=== PATIENT | female | born 1985 | race Caucasian/White ===

== ENCOUNTER 2016-12-30 11:01 | Inpatient (IN) ==
[2016-12-30] MEDS ORDERED: ZOFRAN IV ONE (11:51)
[2016-12-30] MEDS ORDERED: MORPHINE IV ONE (11:51)
[2016-12-30] MEDS ORDERED: NS 2,000 ML IV ONE (11:51)
--- NOTE | 2016-12-30 12:00 | PROVIDER DOCUMENTATION ---
HPI-General Adult - General Chief Complaint: Nausea/Vomiting Stated Complaint: VOMITING,DIABETIC Time Seen by Provider: 12/30/16 11:34 Source: patient Allergies/Adverse Reactions: Patient Allergies Allergy/AdvReac Type Severity Reaction Status Date / Time acetaminophen [From Tylenol] AdvReac NAUSEA/VOMI Verified 11/18/16 16:24 TING promethazine HCl * AdvReac VOMITING Verified 12/30/16 11:48 [From Phenergan] Home Medications: Home Medication List Medication Instructions Recorded Confirmed Last Taken Type Insulin Novolog 70/30 [Novolog Mix 22 unit SQ TID CC 08/13/14 12/30/16 12/30/16 History 70/30] Insulin Glargine,Hum.rec.anlog 24 unit SQ QHS 10/17/16 12/30/16 12/30/16 History [Lantus Solostar] Levothyroxine [Synthroid] 112 microgm PO DAILY 10/17/16 12/30/16 12/28/16 History Hydrocodone/APAP 10 mg/325 mg 1 each PO Q6H PRN PRN 12/30/16 12/30/16 12/28/16 History [[place]-10] Pregabalin [Lyrica] 300 mg PO DAILY 12/30/16 12/30/16 12/28/16 History - History of Present Illness -Gen Adult Nature of Presenting Problems: patient is a 31 y/o F that presents to the ER with 2 days of n/v and back pain. patient reports her blood sugar this am was almost at 500mg/dl. patient took 40 units of insulin and at triage blood sugar was 290mg/dl. patient reports having similar symptoms to her previous DKA. Location of Pain/Injury: reports: back Pain Radiation: reports: no radiation Quality of Pain: reports: aching, cramping Severity: reports: moderate, severe Onset/Duration: reports: gradual, 2 days ago Timing: reports: still present, constant, getting worse Context/Activities at Onset: reports: none Modifying Factors: improves with: nothing Associated Symptoms: reports: back/neck pain, malaise, nausea, vomiting. denies : chest pain, constipation, cough, diaphoresis, diarrhea, fever/chills, genitourinary problems Similar Symptoms Previously?: Yes Recently seen or treated by another doctor?: No - Diabetes Related Context Context: reports: high blood sugar, prior DKA hospitalization Review of Systems - Adult - REVIEW OF SYSTEMS - ADULT Constitutional: denies: chills, fever, fatique Eyes: reports: no symptoms reported Ears, Nose, Mouth & Throat: denies: ear discharge, ear pain, sinus problem, throat pain, throat swelling Cardiovascular: denies: chest pain, palpitations, syncope Respiratory: denies: cough, shortness of breath, wheezing Gastrointestinal: reports: nausea, rectal bleeding. denies: abdominal pain, diarrhea Genitourinary: reports: no symptoms reported Musculoskeletal: reports: back pain, muscle weakness. denies: joint pain, neck pain Integumentary: reports: no symptoms reported Neurological: reports: no symptoms reported Psychiatric: reports: no symptoms reported Endocrine: reports: no symptoms reported Hematologic/Lymphatic: reports: no symptoms reported Allergic/Immunologic: reports: no symptoms reported All Other Systems: Reviewed and Negative Past History - Adult - PAST MEDICAL HISTORY-ADULT Review of Records: reports: Old Records Reviewed, Nursing Assessment Review, Medications Reviewed Gastrointestinal: reports: other (Ventral Hernia, strected abdominal muscle due to large babies) Musculoskeletal: reports: chronic pain (back and neck) Endocrine/Immune: reports: Diabetes, thyroid disorder (hypo) Diabetes Type: Type 1 Diabetes controlled by:: Insulin Dependent - PRIOR SURGERIES/PROCEDURES Surgical/Procedure History: reports: BTL, - IMMUNIZATION STATUS Childhood Immunizations: See Nurse Assessment Flu Vaccine: See Nurse Assessment - FAMILY HISTORY Family History: reviewed, not pertinent - SOCIAL HISTORY Smoking: cigarettes, less than 1 pack/day Living Situation: family Physical Exam-General - PHYSICAL EXAM-ADULT Initial Vital Signs Reviewed: Yes - CONSTITUTIONAL General Appearance: alert, mild distress, moderate distress, anxious, other ( ill appearing) - EYES Eyes: PERRL/EOMI, pink conjunctivae - HEAD, EARS, NOSE, MOUTH & THROAT HENMT: normocephalic/atraumatic, TMs normal, other (dry oral mucosa) - NECK Neck: non-tender, full range of motion, normal inspection. negative: lymphadenopathy - RESPIRATORY Respiratory: lungs clear, normal breath sounds, no respiratory distress, no accessory muscle use - CARDIOVASCULAR Cardiovascular: no gallop, no murmur, tachycardia - GASTROINTESTINAL (ABDOMEN) Abdominal Exam: normal bowel sounds, non tender, soft, no organomegaly, no pulsatile mass - MUSCULOSKELETAL Back Exam: no CVA tenderness, no vertebral tenderness Extremity: normal range of motion, non-tender, normal inspection, no pedal edema , normal capillary refill, pelvis stable - SKIN Integumentary: normal color, warm/dry - NEUROLOGIC Neurologic: grossly normal, no motor/sensory deficits - PSYCHIATRIC Psych/Mental Status: oriented x 3, anxious Progress - PLAN OF CARE/RESULTS Progress/Plan/Lab Results: plan of care-labs, meds, cxr 1221-Abnormal Abg's called to , new orders placed Vital Signs Pulse Resp BP Pulse Ox 12/30/16 12:01 104 H 19 116/84 96 12/30/16 11:07 135 H 24 134/85 100 acetaminophen [From Tylenol] Adverse Reaction (Verified 11/18/16 16:24) NAUSEA/VOMITING promethazine HCl * [From Phenergan] Adverse Reaction (Verified 12/30/16 11:48) VOMITING Insulin Novolog 70/30 [Novolog Mix 70/30] 22 unit SQ TID CC 08/13/14 Insulin Glargine,Hum.rec.anlog [Lantus Solostar] 24 unit SQ QHS 10/17/16 Levothyroxine [Synthroid] 112 microgm PO DAILY 10/17/16 Hydrocodone/APAP 10 mg/325 mg [[place]-10] 1 each PO Q6H PRN PRN 12/30/16 Pregabalin [Lyrica] 300 mg PO DAILY 12/30/16 Laboratory 12/30/16 12/30/16 12/30/16 12:07 12:00 12:00 WBC 6.50 RBC 4.83 Hgb 15.3 Hct 47.0 MCV 97.3 MCH 31.7 H MCHC 32.6 L RDW Std Deviation 12.6 Plt Count 279 MPV 11.1 H Immature Gran % (Auto) 0.3 Neut % (Auto) 66.5 Lymph % (Auto) 22.9 Wilson % (Auto) 9.4 H Eos % (Auto) 0.6 Baso % (Auto) 0.3 Immature Gran # (Auto) 0.02 Neut # (Auto) 4.32 Lymph # (Auto) 1.49 Wilson # (Auto) 0.61 H Eos # (Auto) 0.04 Baso # (Auto) 0.02 Specimen Type ARTERIAL Sample Site R BRACHIAL pH 7.26 L pCO2 20 L pO2 112 H HCO3 12.7 L Base Excess -15.6 L Oxyhemoglobin 96.1 ABG O2 Sat (Calculated) 21.2 ABG O2 Saturation 99.4 ABG Carboxyhemoglobin 1.90 ABG Methemoglobin 1.4 [place] Test NO A-a O2 Difference 13.0 Total Hemoglobin 15.6 Lactate 6.70 H* Blood Gas Modality ROOM AIR FiO2 % 21.0 Sodium 137 Potassium 4.1 Chloride 92 L Carbon Dioxide 10 L Anion Gap 35 BUN 16 Creatinine 1.2 H Estimated GFR/1.73 m2 53 BUN/Creatinine Ratio 13 Glucose 169 H Calculated Osmolality 279 Calcium 9.5 Total Bilirubin 0.40 AST 172 H ALT 131 H Alkaline Phosphatase 250 H Total Protein 7.8 Albumin 4.5 Globulin 3.3 Albumin/Globulin Ratio 1.4 Acetone Level MODERATE A Orders Category Date Time Status IV Insertion ORDERED Care 12/30/16 11:51 Active CHEST-2 VIEWS [RAD] Stat Exams 12/30/16 11:53 Draft ABG [RESP] Routine Lab 12/30/16 12:07 Completed ACETONE SERUM [CHEM] Stat Lab 12/30/16 12:00 Completed CBC WITH DIFF [HEME] Stat Lab 12/30/16 12:00 Completed COMPREHENSIVE METABOLIC PANEL [CHEM] Stat Lab 12/30/16 12:00 Completed URINALYSIS W/POSS RFLX CULT [URINALYSIS] Stat Lab 12/30/16 12:21 Uncollected 0.9% Sodium Chloride Inj [Ns] 100 ml Med 12/30/16 12:30 Active Insulin Human Regular [Humulin R] 100 unit IV 7 mls/hr 0.9% Sodium Chloride Inj [Ns] 2,000 ml Med 12/30/16 11:51 Active IV 999 mls/hr Dextrose 5%-0.9% NaCl Inj [D5 Ns] 1,000 ml Med 12/30/16 13:12 Discontinued .ROUTE As Directed Dextrose 5%-0.9% NaCl Inj [D5 Ns] 1,000 ml Med 12/30/16 13:11 Active IV 200 mls/hr Insulin Human Regular [Humulin R] Med 12/30/16 12:21 Discontinued 10 unit IV NOW ONE Morphine Med 12/30/16 11:51 Discontinued 4 mg IV NOW ONE Ondansetron [Zofran] Med 12/30/16 11:51 Discontinued 4 mg IV NOW ONE - XRAY 1 XRAY Study: Chest Impression: Normal XRAY Interpretation: nad - CONSULTS/PCP/HOSPITALIST Notification #1 *Consult/PCP/Hospitalist*: ( generation technician for hospitalist) Time Discussed: 13:24 Reason/Comments: DKA Consult Disposition: Will see in ED, Admit Departure - Departure Time of Disposition Order: 13:25 DIAGNOSIS: DKA, type 1 Qualifiers: Diabetes mellitus complication detail: without coma Qualified Code(s): E10.10 - Type 1 diabetes mellitus with ketoacidosis without coma Uncontrolled diabetes mellitus Qualifiers: Diabetes mellitus type: type 1 Diabetes mellitus complication status: with other specified complication Qualified Code(s): E10.69 - Type 1 diabetes mellitus with other specified complication; E10.65 - Type 1 diabetes mellitus with hyperglycemia Disposition: ADMITTED INPATIENT 09 Certified Medical Emergency: Emergent Condition: Stable Referrals: JACEK ALANIS [Primary Care Provider] - - Critical Care Note Total Time (mins): 40 Critical Care Statement: This patient required my direct personal management to treat or rule out processes, the absence of which, could potentiallly result in sudden, clinically significant life or limb threatening deterioration. Attestation - Scribe Verification/Attestation Scribe:: Liam Pritchett Acting as Scribe for:: Karen Trivedi Scribe documention review:: This chart was documented by a scribe and accurately reflects the service the provider performed and the decisions made by the provider. Physician Attestation - Physician Attestation I, the provider, attest to the following statement:: Karen Trivedi Physician documentation Attestation:: This documentation recorded by the scribe accurately reflects the service I personally performed and the decisions made by me.
[2016-12-30 12:10] LABS: MANUAL DIFF NEEDED? NO
[2016-12-30 12:17] LABS: BASO% 0.3 % (0.0-0.8); EOS# 0.04 X1000 (0.0-0.7); EOS% 0.6 % (0.0-10.0); HEMOGLOBIN 15.3 g/dL (12.0-16.0); IMM GRAN# 0.02 X1000 (0.0-0.04); IMM GRAN% 0.3 % (0.0-0.5); LYMPH# 1.49 X1000 (1.2-3.4); LYMPH% 22.9 % (20.5-51.1); MCH 31.7 PG (27-31); MCHC 32.6 g/dL (33-37); MCV 97.3 FL (81-99); MONO# 0.61 X1000 (0.11-0.59); MONO% 9.4 % (1.7-9.3); MPV 11.1 FL (7.4-10.4); NEUT% 66.5 % (42.2-75.2); PLT 279 X1000 (130-400); RBC 4.83 XMIL (4.2-5.4)
[2016-12-30 12:17] LABS: ALLEN TEST NO; BE -15.6 mmoll (-3.0-3.0); BLOOD TYPE ARTERIAL; DRAW SITE R BRACHIAL; METHB 1.4 % (0.0-1.5); O2(CT) 21.2 mL/dL (15.0-23.0); PCO2(98.6) 20 mmHg (35-45); PO2(98.6) 112 mmHg (60-100); SAMPLE BLOOD; SAO2 99.4 % (95.0-100.0); THB 15.6 g/dL (11.5-17.4); pH(98.6) 7.26 (7.35-7.45)
[2016-12-30 12:18] LABS: MODALITY ROOM AIR
[2016-12-30] MEDS ORDERED: HUMULIN R IV ONE (12:21)
[2016-12-30] MEDS ORDERED: HUMULIN R 100 UNIT in NS 100 ML IV SCH (12:30)
[2016-12-30 12:35] LABS: ACETONE SERUM MODERATE (NEGATIVE)
[2016-12-30 13:03] LABS: SODIUM 137 mmol/L (136-145)
[2016-12-30 13:04] LABS: AGAP 35; ALBUMIN 4.5 g/dL (3.5-5.0); ALKALINE PHOSPHATASE 250 U/L (32-104); BUN 16 mg/dL (8-22); CALCIUM 9.5 mg/dL (8.8-10.2); CHLORIDE 92 mmol/L (98-107); COSMO 279; GOT 172 U/L (10-30); GPT 131 U/L (10-36); POTASSIUM 4.1 mmol/L (3.5-5.1); TCO2 10 mmol/L (25-35); TOTAL PROTEIN 7.8 g/dL (6.3-8.3)
--- NOTE | 2016-12-30 13:05 | Diag Imaging Result Document ---
PROCEDURE NAME: CHEST-2 VIEWS - 12/30/2016 SEATED AP AND LATERAL RADIOGRAPH OF THE CHEST: COMPARISON: 11/18/2016. FINDINGS: The lungs are grossly clear. There is no discrete pleural fluid collection or evidence of pneumothorax. The cardiomediastinal silhouette and upper airway are grossly unremarkable. IMPRESSION: No evidence of acute chest pathology.
[2016-12-30] MEDS ORDERED: D5 NS 1,000 ML ONE (13:12)
[2016-12-30] MEDS: D5 NS 1,000 ML IV ONE ×2 (13:17→15:45)
--- NOTE | 2016-12-30 15:05 | ED EKG INTERP ---
EKG Interpretation - EKG Time of EKG reading by physician:: 14:56 EKG Read and Signed by:: Karen Trivedi EKG Interpretation (*Must complete 3 of following elements*): Abnormal Rate: 93 Rhythm: Sinus Rhythm with short SC Zephyr: normal QRS: normal SC Interval: normal ST Wave: non-specific ST changes Attestation - Scribe Verification/Attestation Scribe:: Liam Pritchett Acting as Scribe for:: Karen Trivedi Scribe documention review:: This chart was documented by a scribe and accurately reflects the service the provider performed and the decisions made by the provider. Physician Attestation - Physician Attestation I, the provider, attest to the following statement:: Karen Trivedi Physician documentation Attestation:: This documentation recorded by the scribe accurately reflects the service I personally performed and the decisions made by me.
--- NOTE | 2016-12-30 15:44 | EKG Report ---
Test Performed on : 12/30/2016 2:56:47 PM Test Reason : dka Blood Pressure : / mmHG Vent. Rate : 093 BPM Atrial Rate : 093 BPM P-R Int : 110 ms QRS Dur : 092 ms QT Int : 354 ms P-R-T Axes : 055 021 -40 degrees QTc Int : 440 ms Sinus rhythm. with short AR ST & T wave abnormality, consider anterolateral ischemia Abnormal ECG No previous ECGs available Unconfirmed Result
[2016-12-30] MEDS ORDERED: ZOFRAN IV PRN (16:37)
--- NOTE | 2016-12-30 17:05 | HISTORY AND PHYSICAL ---
PRIMARY CARE PROVIDER: Claritza You, medical doctor. CHIEF COMPLAINT: Vomiting with chills for 2 days and body aches that she states is chronic. HISTORY OF PRESENT ILLNESS: Ms Ying Aguayo is a 31-year-old female. She is in no acute distress. Has past medical history of diabetes mellitus type 1, arthritis, DJD, scoliosis, hypothyroidism, GERD, gastritis, hiatal hernia who apparently has been having some vomiting with chills for 2 days. She states she has body aches but this is chronic in nature. Denies blood in the urine, stool or emesis. She did not check her temperature. She came here to seek medical attention as her symptoms did not improve. She denies any polyuria, dipsia or blurred vision, no other symptoms of pain. She is stable and we will start her on a DKA protocol and transfer to the ICU at [facility]. Lab pandya she is essentially stable other than her pH was 7.26, pCO2 is 20 and her bicarb was 12. Her lactate was 6.7. Vital signs are stable and she is alert and oriented. PAST MEDICAL HISTORY: Of diabetes mellitus type 1, arthritis, DJD, scoliosis, hypothyroidism, GERD, acute gastritis, hiatal hernia. PAST SURGICAL HISTORY: Two sections. SOCIAL HISTORY: Smokes about 1 pack per week of cigarettes. Denies alcohol or illicit drug use. FAMILY HISTORY: Negative. REVIEW OF SYSTEMS: Fourteen point review of systems were complete and all were negative those mentioned above HPI. ALLERGIES: Acetaminophen, Phenergan. HOME MEDICATIONS: Insulin NovoLog 70/30 22 units subcu 3 times a day, Lantus 24 units subcu nightly, Synthroid 112 mcg p.o. daily, [place] 10 one tab p.o. q.6 hours as needed, Lyrica 300 mg p.o. daily. LABORATORY DATA: White blood cells 6000, hemoglobin 15, hematocrit 47, platelet count 279,000. ABGs on room air pH 7.26, pCO2 20, PO2 112, bicarb 12, base excess -15, saturation 96% with a lactate of 6.7 and positive moderate acetone. Sodium 137, potassium 4.1, BUN 16, creatinine 1.2, glucose 169, calcium 9.5, total bilirubin 0.4, AST 172, ALT 131, CK 81, troponin less than 0.01. IMAGING: Chest x-ray, no acute findings. EKG sinus rhythm, rate of 93. PHYSICAL EXAM: VITAL SIGNS: Temperature not recorded, heart rate 97, respiratory rate 15, blood pressure 117/74, O2 saturation 95% on room air. She is 5 feet 8 inches tall, 160 pounds, BMI 24.3. GENERAL: Ms. Aguayo is a 31-year-old female. She is in no acute distress. She is able answer all questions appropriately. HEENT: Atraumatic, normocephalic. Pupils equal, round, reactive to light. Extraocular movements intact. Mucous membranes are dry. NECK: No JVD or carotid bruits noted. CARDIOVASCULAR: S1, S2. Regular rate and rhythm. No rubs, gallops, murmurs. PULMONARY: Clear to auscultate. Bilateral breath sounds. No accessory muscle use or work of breathing noted. GI: Soft, nontender, nondistended. Positive bowel sounds x4. NEURO: A and O x4. Moves all extremities equally. SKIN: Warm, dry, intact. ASSESSMENT AND PLAN: 1. Diabetic ketoacidosis. Glucoses are pretty stable. She does appear dehydrated. Her pH is 7.26, pCO2 20 with a bicarb of 12 and base excess -15 and her lactate is up to 6.7. Will do DKA per protocol. 2. Transaminitis likely secondary to dehydration. She will receive aggressive IV fluid hydration. 3. Nausea with vomiting. Will continue with antiemetics and IV fluid hydration until oral intake improved. 4. Gastroesophageal reflux disease and gastrointestinal prophylaxis. Continue with IV Protonix. 5. Hypothyroidism. Continue Synthroid. 6. Deep venous thrombosis prophylaxis. Will do ANTONIO. Dictated by TENA Davalos for Minesh Painting MD
[2016-12-30] MEDS ORDERED: NORCO-10 PO PRN (18:31)
[2016-12-30 18:50] LABS: URINE CULTURE PL NEEDED? NO; URINE SOURCE CLEAN CATCH
[2016-12-30 18:51] LABS: BILIRUBIN URINE NEGATIVE (NEGATIVE); BLOOD URINE NEGATIVE (NEGATIVE); CLARITY CLEAR (CLEAR); COLOR YELLOW; NITRITE URINE NEGATIVE (NEGATIVE); PROTEIN URINE 1+(30 mg/dL) mg/dL (NEGATIVE); UROBILINOGEN URINE NORMAL
[2016-12-30 18:52] LABS: LEUKOCYTES URINE TRACE (NEGATIVE); URINE EPITHELIAL CELLS <10 /HPF (<10); URINE RBC <10 /HPF (<10); URINE WBC <10 /HPF (<10)
[2016-12-30] MEDS ORDERED: MOTRIN LIQUID PO PRN (18:53)
[2016-12-30 19:35] LABS: AGAP 24; ALBUMIN 3.6 g/dL (3.5-5.0); ALKALINE PHOSPHATASE 181 U/L (32-104); BUN 12 mg/dL (8-22); CALCIUM 8.1 mg/dL (8.8-10.2); CHLORIDE 96 mmol/L (98-107); COSMO 284; GOT 121 U/L (10-30); GPT 91 U/L (10-36); MAGNESIUM 1.7 mg/dL (1.5-2.7); SODIUM 135 mmol/L (136-145); TCO2 15 mmol/L (25-35); TOTAL PROTEIN 6.5 g/dL (6.3-8.3)
[2016-12-30] MEDS: LYRICA PO SCH (20:11)
[2016-12-30] MEDS: PROTONIX IV SCH (20:13)
[2016-12-30] MEDS: SODIUM CHLORIDE 0.9% INJ SCH (20:13)
[2016-12-30] MEDS: MOTRIN LIQUID PO PRN (20:17)
[2016-12-30] MEDS: HUMULIN 70/30 (PARKWAY) SUBQ SCH (20:19)
[2016-12-30] MEDS ORDERED: LANTUS INSULIN (PARKWAY) SUBQ SCH (21:00)
[2016-12-31 05:57] LABS: MANUAL DIFF NEEDED? NO
[2016-12-31] MEDS: HUMULIN 70/30 (PARKWAY) SUBQ SCH ×2 (08:00→15:29)
[2016-12-31] MEDS: SYNTHROID PO SCH (08:10)
--- NOTE | 2016-12-31 08:13 | PROGRESS NOTE ---
DATE: 12/31/2016 SUBJECTIVE: Patient notes she is feeling a little bit better this morning. She is having much less abdominal pain, much less nausea. OBJECTIVE: Vital Signs: Reviewed. General: She is awake, alert, oriented. Neck: Supple. CV: Regular rate. Chest: Relatively clear. Abdomen: Soft. Extremities: Moves all extremities. Neurologic: No focal changes. Skin: Warm and dry. No rashes. Labs: Reviewed. Carbon dioxide 15 on her CMP. ASSESSMENT: 1. Diabetic ketoacidosis. There was some confusion and her insulin drip did not get started. She appears to be improving without it on her home insulin. Acetone level was still pending this morning. If it is positive, certainly will need to start her on an insulin drip and follow. Otherwise, patient states she is feeling much better. 2. Nausea and vomiting, improved. 3. Transaminitis, also improving. 4. Hypothyroidism. Continue Synthroid.
[2016-12-31] MEDS: PROTONIX IV SCH ×2 (09:00→20:15)
[2016-12-31 09:05] LABS: AGAP 22; ALBUMIN 3.6 g/dL (3.5-5.0); ALKALINE PHOSPHATASE 196 U/L (32-104); BUN 13 mg/dL (8-22); CALCIUM 8.6 mg/dL (8.8-10.2); CHLORIDE 97 mmol/L (98-107); COSMO 275; GOT 114 U/L (10-30); GPT 92 U/L (10-36); MAGNESIUM 1.7 mg/dL (1.5-2.7); POTASSIUM 3.8 mmol/L (3.5-5.1); SODIUM 134 mmol/L (136-145); TCO2 14 mmol/L (25-35); TOTAL PROTEIN 6.5 g/dL (6.3-8.3)
[2016-12-31 09:28] LABS: INR 1.07 (0.86-1.15); PROTIME 14.2 Seconds (12.1-15.5); PTT PL 23.5 Seconds (22.6-43.9)
[2016-12-31 10:06] LABS: BASO% 0.6 % (0.0-0.8); EOS# 0.13 X1000 (0.0-0.7); EOS% 1.9 % (0.0-10.0); HEMATOCRIT 41.1 % (37.0-47.0); HEMOGLOBIN 13.1 g/dL (12.0-16.0); IMM GRAN# 0.02 X1000 (0.0-0.04); IMM GRAN% 0.3 % (0.0-0.5); LYMPH# 2.38 X1000 (1.2-3.4); LYMPH% 34.6 % (20.5-51.1); MCH 31.3 PG (27-31); MCHC 31.9 g/dL (33-37); MCV 98.1 FL (81-99); MONO# 0.54 X1000 (0.11-0.59); MONO% 7.9 % (1.7-9.3); NEUT% 54.7 % (42.2-75.2); PLT 229 X1000 (130-400); RBC 4.19 XMIL (4.2-5.4)
[2016-12-31] MEDS ORDERED: D50W SYRINGE IV PRN (10:40)
[2016-12-31] MEDS ORDERED: HUMULIN R IV ONE (10:40)
[2016-12-31] MEDS ORDERED: HUMULIN R 100 UNIT in NS 99 ML IV SCH (10:40)
[2016-12-31] MEDS ORDERED: MAGNESIUM SULFATE 2 GM/S.W.I. 50 ML IV PRN (10:40)
[2016-12-31] MEDS: NS 1,000 ML IV SCH ×2 (11:05→20:15)
[2016-12-31 19:57] LABS: AGAP 14; BUN 16 mg/dL (8-22); CALCIUM 8.5 mg/dL (8.8-10.2); CHLORIDE 99 mmol/L (98-107); COSMO 278; MAGNESIUM 1.8 mg/dL (1.5-2.7); POTASSIUM 3.7 mmol/L (3.5-5.1); SODIUM 133 mmol/L (136-145); TCO2 20 mmol/L (25-35)
[2016-12-31] MEDS: LYRICA PO SCH (20:15)
[2016-12-31] MEDS: MOTRIN LIQUID PO PRN (20:15)
[2016-12-31 23:54] LABS: AGAP 12; BUN 18 mg/dL (8-22); CALCIUM 8.9 mg/dL (8.8-10.2); CHLORIDE 99 mmol/L (98-107); COSMO 272; MAGNESIUM 1.9 mg/dL (1.5-2.7); POTASSIUM 3.4 mmol/L (3.5-5.1); SODIUM 134 mmol/L (136-145); TCO2 23 mmol/L (25-35)
[2017-01-01] MEDS: NS 1,000 ML IV SCH (06:04)
[2017-01-01] MEDS: SYNTHROID PO SCH (06:04)
[2017-01-01 06:29] LABS: AGAP 9; BUN 18 mg/dL (8-22); CALCIUM 8.3 mg/dL (8.8-10.2); CHLORIDE 108 mmol/L (98-107); COSMO 283; MAGNESIUM 1.9 mg/dL (1.5-2.7); POTASSIUM 2.9 mmol/L (3.5-5.1); SODIUM 141 mmol/L (136-145); TCO2 25 mmol/L (25-35)
[2017-01-01] MEDS ORDERED: POTASSIUM CHLORIDE 20 MEQ/SWI 100 ML IV SCH (07:03)
[2017-01-01] MEDS ORDERED: SYNTHROID PO SCH ×2 (07:04→07:30)
[2017-01-01] MEDS ORDERED: KLOR-CON PO ONE ×2 (08:30→11:45)
[2017-01-01] MEDS: PROTONIX IV SCH (09:11)
[2017-01-01] MEDS: SODIUM CHLORIDE 0.9% INJ SCH (09:11)
[2017-01-01] MEDS ORDERED: NOVOLOG MIX 70/30 (PARKWAY) SUBQ SCH (11:22)
[2017-01-01 11:59] VITALS: BP 113/64
[2017-01-01] MEDS ORDERED: LANTUS INSULIN (PARKWAY) SUBQ SCH (21:00)
--- NOTE | 2017-01-02 06:14 | DISCHARGE SUMMARY ---
ADMISSION DATE: 12/30/2016 DISCHARGE DATE: 01/01/2017 PRIMARY CARE PHYSICIAN: Claritza You. ADMISSION DIAGNOSES: 1. Diabetic ketoacidosis. 2. Transaminitis likely secondary dehydration. 3. Nausea and vomiting. 4. Gastroesophageal reflux disease. 5. Hypothyroidism. DISCHARGE DIAGNOSES: 1. Diabetes type 1 uncontrolled. 2. Nausea and vomiting resolved. 3. Gastroesophageal reflux disease. 4. Transaminitis likely secondary to dehydration, improved. SUMMARY OF FINDINGS: This is a 31-year-old female who is a known diabetes type 1 patient who presented to the ER with vomiting and chills for 2 days prior to arriving. States that she has had body aches, but this is chronic in nature. Did not check her temperature. When she arrived she was noted to have a blood sugar of 169. ABG showed a pH of 7.26 with a pCO2 of 20, PO2 112. This was on room air. She was noted to have moderate acetone level. So, she was admitted to the intensive care unit, placed on our DKA protocol. There was some confusion initially on getting it started, but it was started yesterday. She has improved. She is tolerating her diabetic diet. Blood sugar this a.m. per her BMP was 90. She was restarted on her home regimen of insulin. She is tolerating her food again. She is off the insulin drip and it is felt that she can safely be discharged home. DISCHARGE MEDICATIONS: She will continue her home medications: 1. Synthroid 112 mcg p.o. daily. 2. Lyrica 300 mg p.o. daily. 3. [place] 10, 1 p.o. q.6 hours p.r.n. 4. Lantus 24 units subcutaneous at bedtime. 5. NovoLog 70/30, 22 units subcutaneous t.i.d. FOLLOWUP: She will need to follow up with her primary care physician in 1-2 weeks. All discharge instructions have been reviewed with the patient and she verbalized understanding. TIME SPENT ON DISCHARGE: 35 minutes. Dictated by TENA Caicedo for Meek Urbano MD
== END 2017-01-01 13:58 | disposition home or self-care (01) | DRG 639 ==
LOC: ED 11:01 → P.ICU 15:25
PROVIDERS: ATTEND Family Medicine
DX: E10.10 Type 1 diabetes mellitus with ketoacidosis without coma (principal); M41.9 Scoliosis, unspecified; E86.0 Dehydration; R74.8 Abnormal levels of other serum enzymes; K21.9 Gastro-esophageal reflux disease without esophagitis; M19.90 Unspecified osteoarthritis, unspecified site; E03.9 Hypothyroidism, unspecified; K29.70 Gastritis, unspecified, without bleeding; K44.9 Diaphragmatic hernia without obstruction or gangrene; F17.210 Nicotine dependence, cigarettes, uncomplicated; Z79.899 Other long term (current) drug therapy
CPT/HCPCS: 71020; 80048; 80053; 81001; 82009; 82550; 82805; 82948; 83735; 84100; 84443; 84484; 85025; 85610; 85730; 87804; 93005; 96365; 96366; 96375; C9113; J1815; J2270; J2405; J7030; J7042; S0164

== ENCOUNTER 2019-07-20 08:24 | Inpatient (IN) ==
[2019-07-20 09:16] LABS: BASO# 0.04 X1000 (0.0-0.2); BASO% 0.7 % (0.0-0.8); EOS# 0.05 X1000 (0.0-0.7); EOS% 0.9 % (0.0-10.0); HEMATOCRIT 48.1 % (37.0-47.0); HEMOGLOBIN 15.1 g/dL (12.0-16.0); IMM GRAN# 0.06 X1000 (0.0-0.04); LYMPH% 29.5 % (20.5-51.1); MCHC 31.4 g/dL (33-37); MCV 95.6 FL (81-99); MONO# 0.32 X1000 (0.11-0.59); MONO% 5.5 % (1.7-9.3); MPV 10.5 FL (7.4-10.4); NEUT% 62.4 % (42.2-75.2); PLT 364 X1000 (130-400); RBC 5.03 XMIL (4.2-5.4); RDW 13.5 % (11.5-14.5); WBC 5.77 X1000 (4.8-10.8)
--- NOTE | 2019-07-20 09:41 | EKG Report ---
Test Performed on : 07/20/2019 08:47:10 AM Test Reason : dka Blood Pressure : / mmHG Vent. Rate : 111 BPM Atrial Rate : 111 BPM P-R Int : 116 ms QRS Dur : 090 ms QT Int : 390 ms P-R-T Axes : 069 051 022 degrees QTc Int : 530 ms Sinus tachycardia. Nonspecific ST abnormality Prolonged QT Abnormal ECG When compared with ECG of 03-NOV-2018 07:42, No significant change was found Unconfirmed Result
[2019-07-20 09:44] LABS: ACETONE SERUM MODERATE (NEGATIVE)
[2019-07-20 09:58] LABS: AGAP 36; ALB/GLOB RATIO 1.3; ALKALINE PHOSPHATASE 337 U/L (32-104); BUN 13 mg/dL (8-22); CALCIUM 9.6 mg/dL (8.8-10.2); CHLORIDE 89 mmol/L (98-107); COSMO 285; CREATININE 1.2 mg/dL (0.5-0.9); ESTIMATED GFR 52; GOT 624 U/L (10-30); GPT 470 U/L (10-36); MAGNESIUM 2.1 mg/dL (1.5-2.7); PHOSPHORUS 3.5 mg/dL (2.7-4.5); POTASSIUM 4.6 mmol/L (3.5-5.1); SODIUM 132 mmol/L (136-145); TCO2 7 mmol/L (25-35); TOTAL BILIRUBIN 0.41 mg/dL (0.20-1.00); TOTAL PROTEIN 8.8 g/dL (6.3-8.3)
[2019-07-20 10:00] LABS: GLUCOSE 479 mg/dL (70-104)
[2019-07-20] MEDS ORDERED: NS 1,000 ML IV ONE ×2 (10:12)
[2019-07-20] MEDS ORDERED: D50W SYRINGE IV PRN (10:13)
[2019-07-20] MEDS ORDERED: HUMULIN R IV ONE (10:13)
[2019-07-20] MEDS ORDERED: HUMULIN R 100 UNIT in NS 100 ML IV SCH (10:15)
[2019-07-20 10:44] LABS: ALLEN TEST NO; BLOOD TYPE ARTERIAL; HCO3-(ACT) 10.1 mmoll (20.0-26.0); METHB 0.8 % (0.0-1.5); O2(CT) 19.4 mL/dL (15.0-23.0); O2HB 97.1 % (95.0-99.0); PO2(98.6) 127 mmHg (60-100); SAMPLE BLOOD; SAO2 98.8 % (95.0-100.0); THB 14.1 g/dL (11.5-17.4); pH(98.6) 7.23 (7.35-7.45)
[2019-07-20 10:47] LABS: MODALITY ROOM AIR; PCO2(98.6) 14 mmHg (35-45)
[2019-07-20] MEDS ORDERED: ATIVAN IV ONE (11:10)
[2019-07-20] MEDS ORDERED: ZOFRAN IV PRN (11:10)
[2019-07-20] MEDS ORDERED: SODIUM BICARBONATE 8.4% 100 MEQ in STERILE WATER INJ. 500 ML IV PRN (11:10)
[2019-07-20] MEDS ORDERED: TYLENOL PR PRN (11:10)
[2019-07-20] MEDS ORDERED: POTASSIUM CHLORIDE 40 MEQ in NS 250 ML IV PRN (11:10)
[2019-07-20] MEDS ORDERED: SODIUM PHOSPHATE 30 MMOL in D5W 250 ML IV PRN (11:10)
[2019-07-20] MEDS ORDERED: MORPHINE IV PRN (11:10)
[2019-07-20] MEDS ORDERED: POTASSIUM CHLORIDE 20 MEQ in NS 100 ML IV PRN (11:10)
[2019-07-20] MEDS ORDERED: TYLENOL PO PRN (11:10)
[2019-07-20] MEDS ORDERED: POTASSIUM CHLORIDE 20% LIQUID PO PRN (11:10)
[2019-07-20 11:28] LABS: URINE SOURCE CLEAN CATCH
[2019-07-20 11:33] LABS: BILIRUBIN URINE NEGATIVE (NEGATIVE); BLOOD URINE TRACE (NEGATIVE); COLOR YELLOW; GLUCOSE URINE >1000 mg/dL (NEGATIVE); KETONE URINE >150 mg/dL (NEGATIVE); LEUKOCYTES URINE NEGATIVE (NEGATIVE); NITRITE URINE NEGATIVE (NEGATIVE); PH URINE 5.5; PROTEIN URINE 70 mg/dL (NEGATIVE); SP GRAVITY URINE 1.027; TURBIDITY URINE CLEAR (CLEAR); UR EPITHELIAL CELLS <10 /HPF (<10); URINE BACTERIA NEGATIVE /HPF; URINE RBC <10 /HPF (<10); URINE WBC <10 /HPF (<10); UROBILINOGEN URINE NORMAL (NORMAL)
[2019-07-20 11:52] LABS: UR AMPHETAMINES QUAL NONE DETECTED (NONE DETECT); UR BARBITUATES QUAL NONE DETECTED (NONE DETECT); UR BENZODIAZEPIN QUAL NONE DETECTED (NONE DETECT); UR CANNABINOIDS QUAL NONE DETECTED (NONE DETECT); UR COCAINE QUAL NONE DETECTED (NONE DETECT); UR METHADONE QUAL NONE DETECTED (NONE DETECT); UR OPIATES QUAL NONE DETECTED (NONE DETECT); UR OXYCODONE QUAL NONE DETECTED (NONE DETECT); UR PCP QUAL NONE DETECTED (NONE DETECT)
[2019-07-20 12:19] LABS: CALCIUM 8.6 mg/dL (8.8-10.2); CREATININE 1.1 mg/dL (0.5-0.9); MAGNESIUM 1.8 mg/dL (1.5-2.7); PHOSPHORUS 1.3 mg/dL (2.7-4.5); POTASSIUM 3.5 mmol/L (3.5-5.1)
[2019-07-20] MEDS: NS 1,000 ML IV SCH ×4 (14:02→19:54)
--- NOTE | 2019-07-20 14:14 | HISTORY AND PHYSICAL ---
PRIMARY CARE PROVIDER: TENA Iraheta. CHIEF COMPLAINT: Hyperglycemia, generalized pain. HISTORY OF PRESENT ILLNESS: Ms. Aguayo is a 34-year-old female who carries a past medical history of type 1 diabetes and prior admissions for DKA, fibromyalgia, spinal stenosis, bulging disk, scoliosis, and GALINDO. She reports that she was supposed to see Dr. Hack[facility], and was supposed to have an injection in her back, but they canceled it secondary to her hurting too bad. Mother at bedside also reported that over the weekend, her blood sugars have been in the 70s, and this a.m., she started vomiting. They checked her blood sugars. It was over 400, so they came to the ED to be evaluated for DKA. Workup in the ED did reveal that she was acidotic and in DKA, with a moderate acetone level. She was initiated on the DKA protocol. Her first set of cardiac enzymes was negative. She feels like she has cinder blocks sitting on her chest. Still complaining of back pain. We will continue to trend her troponins. We will check her for the flu as she feels like she is achy all over, and admit her to the ICU for further evaluation and treatment. PAST MEDICAL HISTORY: 1. DKA type 1. 2. Spinal stenosis. 3. Bulging disk. 4. Scoliosis. 5. Fibromyalgia. 6. GERD. 7. Hypothyroidism. 8. GALINDO. PAST SURGICAL HISTORY: 1. section. 2. Tubal. 3. Back injections. SOCIAL HISTORY: Half a pack per day smoker. No alcohol or illicit drug use. She does have a son who is in kindergarten. REVIEW OF SYSTEMS: A 12-point review of systems was complete and negative, except for those mentioned in the HPI. PHYSICAL EXAMINATION: VITAL SIGNS: Temperature was 97.6 degrees, heart rate 105, respirations 19, blood pressure 133/90, O2 is 99% on room air. GENERAL: Ms. Aguayo is a uncomfortable-appearing, 34-year-old, female, who is lying on the stretcher, balled up on her left side, complaining of back pain, but in no acute distress. HEENT: Atraumatic, normocephalic. PERRL. NECK: Supple. Trachea midline. CARDIOVASCULAR: S1, S2 appreciated. No murmurs, gallops, rubs noted. No lower extremity edema. PULMONARY: Bilateral breath sounds, clear. GASTROINTESTINAL: Soft, nontender, nondistended. Positive bowel sounds x4 quadrants. EXTREMITIES: No clubbing. No cyanosis. NEUROLOGIC: No focal deficits noted. ASSESSMENT AND PLAN: 1. Diabetic ketoacidosis in a patient with known type 1 diabetes. Will continue on the diabetic ketoacidosis protocol. Monitor in the intensive care unit. 2. Nausea and vomiting secondary to #1. Will continue with antiemetics. 3. Diabetic gastroparesis. 4. Complaint of generalized aches and pains. We did check for flu A and flu B. They were negative. 5. Back pain. Will continue with intravenous morphine. 6. Anxiety. We will give her a 1-time dose of 0.5 mg of Ativan. 7. Complaint of chest pain. Seems to be atypical. However, her first set of cardiac enzymes was negative. We will continue to trend two more sets. 8. Nonalcoholic steatohepatitis. Aware. Further recommendations to follow physician evaluation, laboratory and diagnostic data. Dictated by TENA Rodrgiuez for Elvie Gloria MD cc: MD Claritza Shelton CRNP
[2019-07-20] MEDS ORDERED: KLOR-CON PO ONE ×2 (15:18→17:26)
[2019-07-20 15:43] LABS: ACETONE SERUM MODERATE (NEGATIVE); AGAP 26; BUN 10 mg/dL (8-22); CALCIUM 7.7 mg/dL (8.8-10.2); CHLORIDE 100 mmol/L (98-107); COSMO 284; CREATININE 0.8 mg/dL (0.5-0.9); ESTIMATED GFR > 60; GLUCOSE 362 mg/dL (70-104); MAGNESIUM 1.9 mg/dL (1.5-2.7); PHOSPHORUS 1.7 mg/dL (2.7-4.5); POTASSIUM 4.2 mmol/L (3.5-5.1); SODIUM 135 mmol/L (136-145); TCO2 9 mmol/L (25-35)
--- NOTE | 2019-07-20 16:38 | Diag Imaging Result Doc PS360 ---
EXAM: CHEST-PORTABLE 07/20/2019 HISTORY: dyspnea TECHNIQUE: AP portable upright at 1625 COMMENT: There is no evidence of acute cardiac or pulmonary disease. Compared to 11/03/2018 there has been no significant change. IMPRESSION: No evidence of acute disease. Electronically signed by Gerhard Bhatti 07/20/2019 4:36 PM
[2019-07-20] MEDS ORDERED: G.I. COCKTAIL PO ONE (17:13)
[2019-07-20] MEDS: NORCO-10 PO PRN ×2 (17:34→22:42)
[2019-07-20] MEDS: DILAUDID IV PRN ×2 (17:36→22:52)
[2019-07-20] MEDS: D5 NS 1,000 ML IV PRN (19:06)
[2019-07-20 19:30] LABS: AGAP 22; BUN 9 mg/dL (8-22); CALCIUM 7.6 mg/dL (8.8-10.2); CHLORIDE 104 mmol/L (98-107); COSMO 273; CREATININE 0.9 mg/dL (0.5-0.9); ESTIMATED GFR > 60; GLUCOSE 100 mg/dL (70-104); MAGNESIUM 1.9 mg/dL (1.5-2.7); PHOSPHORUS 2.1 mg/dL (2.7-4.5); POTASSIUM 4.2 mmol/L (3.5-5.1); SODIUM 137 mmol/L (136-145); TCO2 11 mmol/L (25-35)
[2019-07-20] MEDS: POTASSIUM CHLORIDE 10% LIQUID PO PRN (20:12)
[2019-07-20 22:45] LABS: AGAP 26; BUN 9 mg/dL (8-22); CALCIUM 7.9 mg/dL (8.8-10.2); CHLORIDE 102 mmol/L (98-107); COSMO 277; CREATININE 0.9 mg/dL (0.5-0.9); ESTIMATED GFR > 60; GLUCOSE 152 mg/dL (70-104); MAGNESIUM 1.9 mg/dL (1.5-2.7); PHOSPHORUS 1.7 mg/dL (2.7-4.5); POTASSIUM 3.9 mmol/L (3.5-5.1); SODIUM 138 mmol/L (136-145); TCO2 10 mmol/L (25-35)
[2019-07-21] MEDS: POTASSIUM CHLORIDE 10% LIQUID PO PRN ×2 (01:04→07:27)
[2019-07-21] MEDS: D5 NS 1,000 ML IV PRN (03:11)
[2019-07-21 04:41] LABS: ALLEN TEST YES; BE -8.9 mmoll (-3.0-3.0); BLOOD TYPE ARTERIAL; METHB 0.8 % (0.0-1.5); O2(CT) 15.3 mL/dL (15.0-23.0); O2HB 95.8 % (95.0-99.0); PCO2(98.6) 29 mmHg (35-45); PO2(98.6) 75 mmHg (60-100); SAMPLE BLOOD; SAO2 98.1 % (95.0-100.0); THB 11.3 g/dL (11.5-17.4); pH(98.6) 7.34 (7.35-7.45)
[2019-07-21 04:44] LABS: MODALITY ROOM AIR
[2019-07-21] MEDS: NS 1,000 ML IV SCH (06:25)
[2019-07-21 06:50] LABS: HEMATOCRIT 35.6 % (37.0-47.0); HEMOGLOBIN 11.1 g/dL (12.0-16.0); MCH 29.7 PG (27-31); MCHC 31.2 g/dL (33-37); MCV 95.2 FL (81-99); MPV 10.7 FL (7.4-10.4); RBC 3.74 XMIL (4.2-5.4); RDW 13.5 % (11.5-14.5); WBC 4.28 X1000 (4.8-10.8)
[2019-07-21] MEDS ORDERED: PROTONIX IV SCH (07:00)
[2019-07-21 07:09] LABS: AGAP 18; BUN 7 mg/dL (8-22); CALCIUM 8.1 mg/dL (8.8-10.2); CHLORIDE 106 mmol/L (98-107); COSMO 283; CREATININE 0.8 mg/dL (0.5-0.9); ESTIMATED GFR > 60; GLUCOSE 275 mg/dL (70-104); MAGNESIUM 2.2 mg/dL (1.5-2.7); POTASSIUM 4.6 mmol/L (3.5-5.1); SODIUM 138 mmol/L (136-145); TCO2 14 mmol/L (25-35)
[2019-07-21] MEDS: NORCO-10 PO PRN (07:10)
[2019-07-21] MEDS: DILAUDID IV PRN (07:11)
--- NOTE | 2019-07-21 07:30 | PROVIDER DOCUMENTATION ---
This chart was entered by Maritza Hoover Scribe, acting as scribe for Ernestine Patel MD. HPI-General Adult - General Chief Complaint: DKA ALERT Stated Complaint: high BLOOD SUGAR Time Seen by Provider: 07/20/19 10:04 Source: patient, family Allergies/Adverse Reactions: Patient Allergies Allergy/AdvReac Type Severity Reaction Status Date / Time Iodinated Contrast Media Allergy Unknown Verified 11/03/18 06:20 [IV Dye] promethazine HCl * AdvReac VOMITING Verified 11/03/18 06:20 [From Phenergan] Home Medications: Home Medication List Medication Instructions Recorded Confirmed Last Taken Type Insulin Novolog 70/30 [Novolog Mix 22 unit SQ TID CC 08/13/14 07/20/19 12/30/16 History 70/30] Insulin Glargine,Hum.rec.anlog 25 unit SQ QHS 10/17/16 07/20/19 12/30/16 History [Lantus Solostar] Levothyroxine [Synthroid] 112 microgm PO DAILY 10/17/16 07/20/19 12/28/16 History Hydrocodone/APAP 10 mg/325 mg 1 each PO Q6H PRN PRN 12/30/16 07/20/19 12/28/16 History [Crane-10] Pregabalin [Lyrica] 100 mg PO BID 12/30/16 07/20/19 12/28/16 History Celecoxib [Celebrex] 200 mg PO BID 06/11/17 07/20/19 Unknown History Cyclobenzaprine [Flexeril] 10 mg PO TID #20 tab 04/10/18 07/20/19 Unknown Rx Ibuprofen 800 mg PO BID 11/03/18 07/20/19 Unknown History - History of Present Illness -Gen Adult Nature of Presenting Problems: 34 yowf presents w/family at bedside w/cc high fsbs in 470s this am, lethargic, dehydrated, back pain, abd pain, confusion, vomiting and "breathing erratically" starting thursday. pt was to go to [facility] thursday for injection and couldn't due to pain. family sts pt was okay thursday but thursday symptoms started and have become worse. pt has hx of T1 DM and takes 70/30 insulin, 20 units in am and 20 in pm. pt also has hx of gastroparesis, DDD and spinal stenosis. pt took ativan thursday and norocos 10 but has had no relief. deneis fever, chills and diarrhea. pt requesting pain rx. Location of Pain/Injury: reports: abdomen, back Pain Radiation: reports: no radiation Severity: reports: mild Onset/Duration: reports: 4 days ago Timing: reports: still present Context/Activities at Onset: reports: none Associated Symptoms: reports: back/neck pain, vomiting, other (confusion, breathing erratically and lethargy) Similar Symptoms Previously?: No - Diabetes Related Context Context: reports: high blood sugar, change in mental status (confusion) Review of Systems - Adult - REVIEW OF SYSTEMS - ADULT Constitutional: reports: see HPI, other (lethargic). denies: chills, fever Eyes: reports: no symptoms reported. denies: decreased vision, blurred vision, double vision Ears, Nose, Mouth & Throat: reports: see HPI, other (dehydrated). denies: hoarseness, throat pain, throat swelling Cardiovascular: reports: no symptoms reported Respiratory: reports: see HPI, other (breathing erratically). denies: cough, pleurisy, wheezing Gastrointestinal: reports: no symptoms reported, abdominal pain, vomiting. denies: hematemesis, constipation, diarrhea Genitourinary: reports: no symptoms reported Musculoskeletal: reports: see HPI, back pain. denies: frequent leg cramps, joint swelling, neck pain Integumentary: reports: no symptoms reported Neurological: reports: see HPI, other (confusion). denies: slurred speech, syncope, tremors Psychiatric: reports: no symptoms reported Endocrine: reports: see HPI, other (high fsbs). denies: change in skin pigment, excessive sweating, goiter Hematologic/Lymphatic: reports: no symptoms reported Allergic/Immunologic: reports: no symptoms reported All Other Systems: Reviewed and Negative Past History - Adult - PAST MEDICAL HISTORY-ADULT Review of Records: reports: Old Records Reviewed, Nursing Assessment Review, Medications Reviewed, Social history reviewed & non-contributory. Major Childhood Illnesses: reports: denies history Cardiovascular: reports: denies history Respiratory: reports: denies history Gastrointestinal: reports: other (Ventral Hernia, strected abdominal muscle due to large babies) Obstetrical/Gynecological: reports: denies history Genitourinary: reports: denies history Musculoskeletal: reports: chronic pain (back and neck), fibromyalgia Neurological: reports: denies history Endocrine/Immune: reports: Diabetes, thyroid disorder (hypo) Diabetes Type: Type 1 Diabetes controlled by:: Insulin Dependent Other Conditions: reports: denies history - PRIOR SURGERIES/PROCEDURES Surgical/Procedure History: reports: BTL, - IMMUNIZATION STATUS Childhood Immunizations: See Nurse Assessment Flu Vaccine: See Nurse Assessment - FAMILY HISTORY Family History: reviewed, not pertinent - SOCIAL HISTORY Smoking: cigarettes, less than 1 pack/day Provider spent 3-5 mins advising pt. on dangers of tobacco.: Discussed manners to quit use, and f/u contacts for add'l counseling. Substance Use: none/never Physical Exam-General - PHYSICAL EXAM-ADULT Initial Vital Signs Reviewed: Yes - CONSTITUTIONAL General Appearance: mild distress, lethargic, slow to respond. negative: appears well, anxious, combative - EYES Eyes: PERRL/EOMI, pink conjunctivae - HEAD, EARS, NOSE, MOUTH & THROAT HENMT: normocephalic/atraumatic, normal ENT inspection. negative: moist mucous membranes (dry mucous membranes) - NECK Neck: non-tender, full range of motion, supple, normal inspection - RESPIRATORY Respiratory: chest non-tender, lungs clear, normal breath sounds, no pleuratic chest pain, no respiratory distress, no accessory muscle use. negative: pain on inspiration, pleural rub, retractions - CARDIOVASCULAR Cardiovascular: normal peripheral pulses, no edema, no gallop, no JVD, no murmur , tachycardia. negative: regular rate, rhythm, JVD, bradycardia - GASTROINTESTINAL (ABDOMEN) Abdominal Exam: normal bowel sounds, non tender, soft, no organomegaly, no pulsatile mass. negative: distended, rigid, tenderness - LYMPHATIC Lymphatic: no adenopathy - MUSCULOSKELETAL Back Exam: normal inspection, no CVA tenderness, no vertebral tenderness Extremity: normal range of motion, non-tender, normal inspection Peripheral Pulses: radial (R): 2+, radial (L): 2+ - SKIN Integumentary: normal color, normal turgor, warm/dry - NEUROLOGIC Neurologic: grossly normal, no motor/sensory deficits - PSYCHIATRIC Psych/Mental Status: normal mood/affect, normal thought content, normal thought process, other (pt oriented but lethragic, slow to respond) Progress - PLAN OF CARE/RESULTS Progress/Plan/Lab Results: Vital Signs - 8 hr 07/20/19 08:29 07/20/19 09:28 07/20/19 09:29 Temperature 97.6 F Pulse Rate 106 H 109 H 107 H Respiratory Rate 24 20 27 H Blood Pressure 117/83 156/95 O2 Sat by Pulse Oximetry 100 07/20/19 09:30 07/20/19 09:32 07/20/19 09:45 Temperature Pulse Rate 103 H 101 H 103 H Respiratory Rate 22 25 H 20 Blood Pressure 145/94 O2 Sat by Pulse Oximetry 100 100 100 07/20/19 10:00 07/20/19 10:02 Temperature Pulse Rate 106 H 105 H Respiratory Rate 19 19 Blood Pressure 133/90 O2 Sat by Pulse Oximetry 99 99 Laboratory Results - last 24 hr 07/20/19 07/20/19 07/20/19 08:28 08:37 08:37 WBC 5.77 RBC 5.03 Hgb 15.1 Hct 48.1 H MCV 95.6 MCH 30.0 MCHC 31.4 L RDW Std Deviation 13.5 Plt Count 364 MPV 10.5 H Immature Gran % (Auto) 1.0 H Neut % (Auto) 62.4 Lymph % (Auto) 29.5 [place] % (Auto) 5.5 Eos % (Auto) 0.9 Baso % (Auto) 0.7 Immature Gran # (Auto) 0.06 H Neut # (Auto) 3.60 Lymph # (Auto) 1.70 [place] # (Auto) 0.32 Eos # (Auto) 0.05 Baso # (Auto) 0.04 Sodium 132 L Potassium 4.6 Chloride 89 L Carbon Dioxide 7 L Anion Gap 36 BUN 13 Creatinine 1.2 H Estimated GFR/1.73 m2 52 BUN/Creatinine Ratio 11 Glucose 479 H* POC Glucose 487 H Calculated Osmolality 285 Calcium 9.6 Phosphorus 3.5 Magnesium 2.1 Total Bilirubin 0.41 AST 624 H ALT 470 H Alkaline Phosphatase 337 H Creatine Kinase Troponin T Total Protein 8.8 H Albumin 5.0 Globulin 3.8 Albumin/Globulin Ratio 1.3 Acetone Level MODERATE A 07/20/19 07/20/19 08:37 08:37 WBC RBC Hgb Hct MCV MCH MCHC RDW Std Deviation Plt Count MPV Immature Gran % (Auto) Neut % (Auto) Lymph % (Auto) [place] % (Auto) Eos % (Auto) Baso % (Auto) Immature Gran # (Auto) Neut # (Auto) Lymph # (Auto) [place] # (Auto) Eos # (Auto) Baso # (Auto) Sodium Potassium Chloride Carbon Dioxide Anion Gap BUN Creatinine Estimated GFR/1.73 m2 BUN/Creatinine Ratio Glucose POC Glucose Calculated Osmolality Calcium Phosphorus Magnesium Total Bilirubin AST ALT Alkaline Phosphatase Creatine Kinase 75 Troponin T < 0.010 Total Protein Albumin Globulin Albumin/Globulin Ratio Acetone Level Orders Category Date Time Status Cardiac Monitoring DIRECTED Care 07/20/19 09:13 Active Finger Stick Blood Sugar (ED) Q1H Care 07/20/19 09:13 Active Saline Loc NOW Care 07/20/19 09:13 Active Vital Signs Order Q1H Care 07/20/19 09:13 Active ABG [RESP] Routine Lab 07/20/19 09:14 Ordered ACETONE SERUM [CHEM] Stat Lab 07/20/19 08:37 Completed CBC WITH DIFF [HEME] Stat Lab 07/20/19 08:37 Completed CK PROFILE [SP CHEM] Stat Lab 07/20/19 08:37 Completed COMPREHENSIVE METABOLIC PANEL [CHEM] Stat Lab 07/20/19 08:37 Completed LACTATE, PLASMA [CHEM] Stat Lab 07/20/19 08:37 Ordered MAGNESIUM [CHEM] Stat Lab 07/20/19 08:37 Completed PHOSPHORUS [CHEM] Stat Lab 07/20/19 08:37 Completed TEST-URINE [PREG] Stat Lab 07/20/19 08:53 Uncollected TROPONIN T Stat Lab 07/20/19 08:37 Completed UA NIMS W/REFLEX CULT [URINALYSIS] Stat Lab 07/20/19 08:53 Uncollected URINE DRUG SCREEN Stat Lab 07/20/19 09:15 Uncollected EKG [EKG] Stat Ther 07/20/19 09:13 Draft Result Diagrams: 07/21/19 04:16 07/21/19 04:16 - EKG 1 Time of EKG reading by physician:: 08:47 EKG Read and Signed by:: Ernestine Patel EKG Interpretation (*Must complete 3 of following elements*): Abnormal Rate: 111 Rhythm: ST QRS: other (prolonged QT) ST Wave: non-specific ST changes (nonspecific ST abnormality) - CONSULTS/PCP/HOSPITALIST Notification #1 *Consult/PCP/Hospitalist*: [place]/Hospitalist Time Discussed: 10:38 Consult Disposition: Will see in ED Departure - Departure Date of Disposition Decision: 07/20/19 Time of Disposition Decision: 10:45 DIAGNOSIS: DKA (diabetic ketoacidoses) Disposition: ADMITTED INPATIENT 09 Certified Medical Emergency: Emergent Condition: Critical - Critical Care Note This patient required my direct & personal management of CC.: Yes Total Time (mins): 31 Critical Care Statement: This patient required my direct personal management to treat or rule out processes, the absence of which, could potentiallly result in sudden, clinically significant life or limb threatening deterioration. Attestation - Physician/ VIVIAN Attestation Patient care was provided by Advanced Practice Provider:: No The physician spent face to face time with patient:: Yes Advanced Practice Provider documentation review:: Supervising physician onsite and consulted in the evaluation and care of this patient. The physician did have a face to face encounter with the patient. This chart was documented by the indicated scribe, (Maritza Hoover Scribe) and accurately reflects the services I performed and decisions made by me, Ernestine Patel MD, as attested by the provider's signature.
[2019-07-21] MEDS ORDERED: SODIUM PHOSPHATE 40 MMOL in NS 250 ML IV ONE (08:17)
[2019-07-21] MEDS ORDERED: LANTUS INSULIN SUBQ ONE (08:17)
[2019-07-21] MEDS ORDERED: NS 1,000 ML IV SCH (08:21)
[2019-07-21] MEDS ORDERED: BENADRYL PO PRN (08:51)
[2019-07-21] MEDS ORDERED: SODIUM CHLORIDE 0.9% INJ SCH (09:00)
[2019-07-21] MEDS ORDERED: LOVENOX SUBQ SCH (09:00)
[2019-07-21] MEDS ORDERED: HUMULIN R SUBQ SCH (11:00)
[2019-07-21 11:34] VITALS: BP 112/69
[2019-07-21] MEDS ORDERED: LANTUS INSULIN SUBQ SCH (21:00)
== END 2019-07-21 11:20 | disposition left against medical advice (07) | DRG 639 ==
LOC: ED 08:24 → EDIPHOLD 11:23 → ICU 14:19
PROVIDERS: ATTEND Internal Medicine